=== PATIENT | female | born 2000 | race African-American/Black ===

== ENCOUNTER 2023-11-06 16:15 | Emergency (ER) | payer OTHER ==
[2023-11-06] MEDS ORDERED: NA CHLORIDE 0.9% 500 ML ONE (17:23)
[2023-11-06 17:27] LABS: Absolute Eosinophils 0.1 K/uL (0-0.5); Absolute Lymphocytes (CBC) 1.4 K/uL (0.7-4.9); Absolute Monocytes 0.9 K/uL (0.1-1.3); Absolute Neutrophil 6.4 K/uL (1.8-8.0); Basophils % 0.6 % (0-1.3); Eosinophils % 1.1 % (0-4.4); Hematocrit 35.1 % (36.0-45.0); Hemoglobin 11.6 g/dL (12.0-15.0); Lymphocytes % 16.3 % (15.3-44.8); MCH 30.4 pg (27.0-35.0); MCV 92.3 fL (80-100); MPV 9.2 fL (7.6-11.3); Monocytes % 9.9 % (3.3-12.3); Neutrophils % 72.1 % (41.7-73.7); Platelets 173 thou/uL (152-406); Red Cell Distribution Width 13.7 % (12.1-15.2)
[2023-11-06 17:36] LABS: Specific Gravity 1.011 (1.005-1.030); Sqamous Epithelial <5 /HPF (None Seen); Urine Bacteria <20 /HPF (<20); Urine Bilirubin NEGATIVE (Negative); Urine Blood Negative (Negative); Urine Clarity Turbid (Clear); Urine Color Light-Yellow (Yellow); Urine Culture Reflex Order NOT NEEDED; Urine Glucose NEGATIVE (Negative); Urine Ketones NEGATIVE (Negative); Urine Microscopic Reflex YN ORDER UMIC; Urine Mucus Slight /HPF (None Seen); Urine Nitrite NEGATIVE (Negative); Urine Protein NEGATIVE (Negative); Urine RBC <5 /HPF (None Seen); Urine Urobilinogen Normal (Normal); Urine WBC <5 /HPF (<5)
[2023-11-06 17:45] LABS: Albumin 3.1 g/dL (3.4-5.0); Albumin/Globulin Ratio 0.8 (1.1-1.8); Anion Gap 7.8 mEq/L (5.0-15.0); Bilirubin Total 0.2 mg/dL (0.2-1.0); Potassium 3.8 mEq/L (3.5-5.1); Protein, Total 7.1 g/dL (6.4-8.2)
--- NOTE | 2023-11-06 18:27 | EDPHYS ---
Physician Documentation [facility] Name: Dougie Mills Age: 22 yrs Sex: Female : 2000 Arrival Date: 11/06/2023 Time: 16:15 Bed 5 Private MD: ED Physician Margarito Saldaña HPI: 11/05 18:19 This 22 yrs old Black Female presents to ER via Ambulatory with complaints of 9 mths madina , Headache, Hand Swelling. 18:19 The patient complains of pain to the forehead. The patient describes the headache as madina aching. Onset: The symptoms/episode began/occurred 3 day(s) ago. Associated signs and symptoms: The patient has no apparent associated signs or symptoms. Severity of symptoms: At its worst the pain was mild, in the emergency department the pain is unchanged. Headache History: The patient has had previous headaches and this one is similar to previous episodes. The symptoms are alleviated by nothing. the symptoms are aggravated by movement, noise. The patient has experienced a previous episode. 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 - Infectious Disease History:: Denies. - Social history:: Smoking status: Patient denies any tobacco usage or history of. ROS: 18:20 Constitutional: Negative for fever, chills, and weight loss, Eyes: Negative for injury, madina pain, redness, and discharge, ENT: Negative for injury, pain, and discharge, Neck: Negative for injury, pain, and swelling, Cardiovascular: Negative for chest pain, palpitations, and edema, Respiratory: Negative for shortness of breath, cough, wheezing, and pleuritic chest pain, Abdomen/GI: Negative for abdominal pain, nausea, vomiting, diarrhea, and constipation, Back: Negative for injury and pain, MS/Extremity: Negative for injury and deformity, Skin: Negative for injury, rash, and discoloration, Neuro: Negative for headache, weakness, numbness, tingling, and seizure, Psych: Negative for depression, anxiety, suicide ideation, homicidal ideation, and hallucinations, Allergy/Immunology: Negative for hives, rash, and allergies, Endocrine: Negative for neck swelling, polydipsia, polyuria, polyphagia, and marked weight changes, Hematologic/Lymphatic: Negative for swollen nodes, abnormal bleeding, and unusual bruising, 18:20 Abdomen/GI: Positive for abdominal distension, 18:20 : Negative for urinary symptoms, urinary frequency, small amounts, hematuria, burning with urination, difficulty urinating, Exam: 18:21 Constitutional: This is a well developed, well nourished patient who is awake, alert, madina and in no acute distress. Head/Face: Normocephalic, atraumatic. Eyes: Pupils equal round and reactive to light, extra-ocular motions intact. Lids and lashes normal. Conjunctiva and sclera are non-icteric and not injected. Cornea within normal limits. Periorbital areas with no swelling, redness, or edema. ENT: Nares patent. No nasal discharge, no septal abnormalities noted. Tympanic membranes are normal and external auditory canals are clear. Oropharynx with no redness, swelling, or masses, exudates, or evidence of obstruction, uvula midline. Mucous membranes moist. Neck: Trachea midline, no thyromegaly or masses palpated, and no cervical lymphadenopathy. Supple, full range of motion without nuchal rigidity, or vertebral point tenderness. No Meningismus. Chest/axilla: Normal chest wall appearance and motion. Nontender with no deformity. No lesions are appreciated. Cardiovascular: Regular rate and rhythm with a normal S1 and S2. No gallops, murmurs, or rubs. Normal PMI, no JVD. No pulse deficits. Respiratory: Lungs have equal breath sounds bilaterally, clear to auscultation and percussion. No rales, rhonchi or wheezes noted. No increased work of breathing, no retractions or nasal flaring. Abdomen/GI: Soft, non-tender, with normal bowel sounds. No distension or tympany. No guarding or rebound. No evidence of tenderness throughout. Back: No spinal tenderness. No costovertebral tenderness. Full range of motion. Female : Normal external genitalia. Skin: Warm, dry with normal turgor. Normal color with no rashes, no lesions, and no evidence of cellulitis. MS/ Extremity: Pulses equal, no cyanosis. Neurovascular intact. Full, normal range of motion. Neuro: Awake and alert, GCS 15, oriented to person, place, time, and situation. Cranial nerves II-XII grossly intact. Motor strength 5/5 in all extremities. Sensory grossly intact. Cerebellar exam normal. Normal gait. Psych: Awake, alert, with orientation to person, place and time. Behavior, mood, and affect are within normal limits. 18:21 Abdomen/GI: Inspection: gravid appearance, is noted, Bowel sounds: normal, Palpation: abdomen is soft and non-tender, in all quadrants, Liver: no appreciated palpable abnormalities, Hernia: not appreciated, Vital Signs: 16:21 BP 149 / 87; Pulse 88; Resp 18; Temp 98; Pulse Ox 100% on R/A; Weight 87.54 kg; Height mb9 5 ft. 4 in. ; Pain 5/10; 18:40 BP 138 / 78; Pulse 78; Resp 16; Pulse Ox 99% ; ko1 16:21 Body Mass Index 33.13 (87.54 kg, 162.56 cm) mb9 16:21 Pain Scale: Adult mb9 Olcott Coma Score: 18:22 Eye Response: spontaneous(4). Motor Response: obeys commands(6). Verbal Response: madina oriented(5). Total: 15. MDM: 16:23 Patient medically screened. [facility] 18:22 Differential diagnosis: cluster headache, cerebral vascular accident, hypoglycemia, madina hyponatremia, migraine, temporal arteritis, tension headache, trigeminal neuralgia, vasomotor headache. Data reviewed: vital signs, nurses notes, lab test result(s). Consideration of Admission/Observation Escalation of care including admission/observation considered. I considered the following discharge prescriptions or medication management in the emergency department Medications were administered in the Emergency Department. See MAR. Test considered but Not performed: CT: NO CT HEAD. Historians other than the Patient: PT WELL INFORMED. Care significantly affected by the following chronic conditions: ASTHMA, G1, P0, A0. 11/05 16:24 Order name: CBC with Diff; Complete Time: 18:19 [facility] 11/05 16:24 Order name: Comprehensive Metabolic Panel; Complete Time: 18:19 [facility] 11/05 16:24 Order name: Urinalysis w/ reflexes; Complete Time: 18:19 [facility] 11/05 16:24 Order name: FHT's; Complete Time: 17:19 madina Administered Medications: 17:23 Drug: NS 0.9% IV 500 ml IV at bolus once Route: IV; Rate: bolus; Site: left antecubital;ko1 18:17 Follow up: Response: No adverse reaction; IV Status: Completed infusion; IV Intake: ko1 500ml Disposition Summary: 11/06/23 18:27 Discharge Ordered Notes: Location: Home madina Problem: new madina Symptoms: have improved madina Condition: Stable madina Diagnosis - Headache madina - 37 weeks gestation of madina - Essential (primary) hypertension madina - Gestational [-induced] hypertension without significant proteinuria, third madina trimester Followup: madina - With: Private Physician - When: 2 - 3 days - Reason: Recheck today's complaints, Continuance of care, Re-evaluation by your physician Discharge Instructions: - Discharge Summary Sheet madina - General Headache Without Cause madina - Hypertension, Adult madina - Preeclampsia and Eclampsia madina - Hypertension, Adult, [id number] madina - How to Take Your Blood Pressure, Otyb-hz-Capm madina - General Headache Without Cause, Usei-me-Kvzu madina - Managing Your Hypertension madina Forms: - Medication Reconciliation Form madina - Antibiotic Education madina - Prescription Opioid Use madina - Patient Portal Instructions madina - Leadership Thank You Letter madina Signatures: Dispatcher [employer] Margarito Mary MD MD cha Oliver, Kathy, RN RN ko1 My Schneider RN RN mb9
--- NOTE | 2023-11-06 18:27 | ER ---
Nurse's Notes [facility] Name: Dougie Mills Age: 22 yrs Sex: Female : 2000 Arrival Date: 11/06/2023 Time: 16:15 Bed 5 Private MD: Diagnosis: Headache;37 weeks gestation of ;Essential (primary) hypertension;Gestational [-induced] hypertension without significant proteinuria, third trimester Presentation: 11/05 16:21 Chief complaint: Patient states: "I've had a migraine for the past week and nothing is mb9 making it better. I've been seeing stars in my vision for 1-2 months and my hands started swelling for the same time. Dr. Guidry is my OB.". Coronavirus screen: At this time, the client does not indicate any symptoms associated with coronavirus-19. Ebola Screen: No symptoms or risks identified at this time. Initial Sepsis Screen: Does the patient meet any 2 criteria? No. Patient's initial sepsis screen is negative. Does the patient have a suspected source of infection? No. Patient's initial sepsis screen is negative. Risk Assessment: Do you want to hurt yourself or someone else? Patient reports no desire to harm self or others. Onset of symptoms was 2023. 16:21 Acuity: JIN 3 mb9 16:21 Method Of Arrival: Ambulatory mb9 Triage Assessment: 16:23 General: Appears in no apparent distress. Behavior is calm, cooperative. Pain: mb9 Complains of pain in head Pain does not radiate. Pain currently is 8 out of 10 on a pain scale. Quality of pain is described as throbbing, Pain began suddenly, Is continuous. EENT: No signs and/or symptoms were reported regarding the EENT system. Neuro: Cano Agitation-Sedation Scale (RASS): 0 - Alert and Calm Level of Consciousness is awake, alert, obeys commands, Oriented to person, place, time, situation, Appropriate for age Reports blurred vision. Cardiovascular: Patient's skin is warm and dry. Respiratory: Airway is patent Respiratory effort is even, unlabored, Respiratory pattern is regular, symmetrical. GI: No signs and/or symptoms were reported involving the gastrointestinal system. : No signs and/or symptoms were reported regarding the genitourinary system. Derm: Skin is pink, warm \\T\\ dry. Musculoskeletal: Swelling present in right hand, left hand, right foot and left foot. 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 - Infectious Disease History:: Denies. - Social history:: Smoking status: Patient denies any tobacco usage or history of. Screenin:20 [facility] ED Fall Risk Assessment (Adult) History of falling in the last 3 months, ko1 including since admission No falls in past 3 months (0 pts) Confusion or Disorientation No (0 pts) Intoxicated or Sedated No (0 pts) Impaired Gait No (0 pts) Mobility Assist Device Used No (0 pt) Altered Elimination No (0 pt) Score/Fall Risk Level 0 - 2 = Low Risk Oriented to surroundings, Maintained a safe environment, Educated pt \\T\\ family on fall prevention, incl call for assistance when getting out of bed, Assessed \\T\\ reinforced patient's understanding of fall precautions, Provided non-skid footwear, Hourly rounding (assess needs \\T\\ fall precautionary measures) done. Abuse screen: Denies threats or abuse. Denies injuries from another. Nutritional screening: No deficits noted. Tuberculosis screening: No symptoms or risk factors identified. Assessment: 17:26 General: Appears in no apparent distress. Behavior is calm, cooperative, appropriate ko1 for age. Pain: Complains of pain in left foot and right foot and left hand and right hand, headache. Neuro: Reports headache frontal area. Cardiovascular: No deficits noted. Respiratory: No deficits noted. GI: No deficits noted. : No deficits noted. EENT: No deficits noted. Derm: No deficits noted. Musculoskeletal: No deficits noted. Vital Signs: 16:21 BP 149 / 87; Pulse 88; Resp 18; Temp 98; Pulse Ox 100% on R/A; Weight 87.54 kg; Height mb9 5 ft. 4 in. ; Pain 5/10; 18:40 BP 138 / 78; Pulse 78; Resp 16; Pulse Ox 99% ; ko1 16:21 Body Mass Index 33.13 (87.54 kg, 162.56 cm) mb9 16:21 Pain Scale: Adult mb9 Vitals: 17:20 Heart Tones 134. ko1 Pineda Coma Score: 18:22 Eye Response: spontaneous(4). Motor Response: obeys commands(6). Verbal Response: madina oriented(5). Total: 15. ED Course: 16:19 Patient arrived in ED. mr 16:19 Arm band placed on. mb9 16:23 Triage completed. mb9 16:23 Margarito Saldaña MD is Attending Physician. [facility] 17:05 Caitlyn Jain, KRISTAL is Primary Nurse. ph 17:19 Urinalysis w/ reflexes Sent. ko1 17:19 Comprehensive Metabolic Panel Sent. ko1 17:19 CBC with Diff Sent. ko1 17:20 Patient has correct armband on for positive identification. Bed in low position. Call ko1 light in reach. Side rails up X 1. Provided Education on: call light. Pulse ox on. NIBP on. Door closed. Noise minimized. Lights dimmed. Warm blanket given. Pillow given. Assisted to bathroom. 17:20 No provider procedures requiring assistance completed. Initial lab(s) drawn, by ms, ko1 sent to lab. Urine collected: clean catch specimen, clear. Inserted saline lock: 22 gauge in left antecubital area, using aseptic technique. Blood collected. 18:40 IV discontinued, intact, bleeding controlled, No redness/swelling at site. Pressure ko1 dressing applied. Administered Medications: 17:23 Drug: NS 0.9% IV 500 ml IV at bolus once Route: IV; Rate: bolus; Site: left antecubital;ko1 18:17 Follow up: Response: No adverse reaction; IV Status: Completed infusion; IV Intake: ko1 500ml Medication: 17:20 VIS not applicable for this client. ko1 Intake: 18:17 IV: 500ml; Total: 500ml. ko1 Outcome: 18:27 Discharge ordered by . [facility] 18:40 Discharged to home ambulatory, with family, ko1 18:40 Condition: stable 18:40 Discharge instructions given to patient, family, Instructed on discharge instructions, follow up and referral plans. Demonstrated understanding of instructions, follow-up care, 18:42 Patient left the ED. ko1 Signatures: Margarito Saldaña MD MD cha Rivera, Mary, Reg Caitlyn Collazo, RN RN ph Randi Garcia, RN RN ko1 My Schneider, RN RN mb9
[2023-11-06 19:43] VITALS: BP 138/78; TEMP 98; O2SAT 99
== END 2023-11-06 18:42 | disposition home or self-care (01) ==
LOC: ER 16:15
DX: O13.3 Gestational [pregnancy-induced] hypertension without significant proteinuria, third trimester (principal); Z3A.37 37 weeks gestation of pregnancy
CPT/HCPCS: 85025; 81001; 36415; 80053; J7040